=== PATIENT | female | born 1955 | race African-American/Black ===

== ENCOUNTER 2016-07-18 02:43 | Emergency (ER) | payer OTHER, MEDICAID ==
[~2016-07-18] VITALS: Ht 175.3 cm; Wt 86.2 kg
[~2016-07-18 02:43] MED LIST: ALBU0.084 NEB; ALPR0.5T PO; ASPI-231; CARI-277 PO; CLON0.1T; DILT120T8 PO; GABA250S PO; LAM25T; LEVEPOW PO; MEM5T PO; METO-5 PO; OMEP20CA74 PO; PERCOCET; PLAVIX PO; RANI-229 PO; SIMV10TA84; TRIA25CA PO
[2016-07-18 03:30] VITALS: BP 151/83
[2016-07-18] MEDS ORDERED: IPRATROPIUM BROM 0.5 MG/2.5ML INH SOL NEB ONE (03:45)
[2016-07-18] MEDS ORDERED: ALBUTEROL SULF 2.5 MG/0.5ML(0.5%) NEB SOLN NEB ONE (03:45)
[2016-07-18 03:47] LABS: Basophils # (auto) 0 uL; Basophils % (auto) 0.6 % (0.0-2.0); Eosinophils # (auto) 0.2 uL; Eosinophils % (auto) 2.7 % (0.0-7.0); Hematocrit 43.8 % (36.0-46.0); Hemoglobin 14.5 g/dL (12.2-16.2); Lymphocytes # (auto) 3.3 uL; Lymphocytes % (auto) 37.9 % (10.0-50.0); Mean Corpuscular Hgb Conc. 33.2 g/dL (32.0-36.0); Mean Corpuscular Volume 90.4 fL (80.0-100.0); Mean Platelet Volume 7.6 fL (7.4-10.4); Monocytes # (auto) 0.3 uL; Monocytes % (auto) 3.7 % (0.0-12.0); Neutrophils # (auto) 4.9 uL; Neutrophils % (auto) 55.1 % (37.0-80.0); Platelet Count (auto) 332 10^3/uL (140-450); Red Cell Distribution Width 14.5 % (11.6-16.0); White Blood Cell 8.8 10^3/uL (4.4-10.8)
[2016-07-18 04:16] LABS: Chloride 109 mmol/L (98-107); Sodium 145 mmol/L (136-145)
[2016-07-18] MEDS ORDERED: methylPREDNISolone SOD SUCC 125 MG/2 ML VL ONE (04:16)
[2016-07-18 04:26] LABS: Albumin 3.8 g/dL (3.4-5.0); Alkaline Phosphatase 149 U/L (45-117); Anion Gap 12 (5-15); BUN/Creatinine Ratio 9.1; Bilirubin, Total 0.4 mg/dL (0.2-1.0); Blood Urea Nitrogen 9 mg/dL (7-18); Calcium 8.8 mg/dL (8.5-10.1); Carbon Dioxide 24 mmol/L (21-32); GFR African American 73 mL/min; GFR Non-African American 60 mL/min; Glucose 100 mg/dL (74-106); Total Protein 7.5 g/dL (6.4-8.2)
[2016-07-18 04:37] LABS: Aspartate Aminotransferase 24 U/L (15-37); Potassium 3.5 mmol/L (3.5-5.1)
[2016-07-18] MEDS ORDERED: methylPREDNISolone SOD SUCC 125 MG/2 ML VL IM ONE (04:45)
== END 2016-07-18 04:44 | disposition left against medical advice (07) ==
LOC: ER 02:46
DX: J45.909 Unspecified asthma, uncomplicated (principal); Z53.21 Procedure and treatment not carried out due to patient leaving prior to being seen by health care provider
CPT/HCPCS: 36415; 71010; 80053; 84484; 85025; 94640; 99281; J2930